=== PATIENT | female | born 1970 | race African-American/Black ===

== ENCOUNTER 2017-08-20 18:14 | Emergency (ER) | payer OTHER ==
[~2017-08-20] VITALS: Ht 154.9 cm; Wt 84.0 kg
[2017-08-20 21:08] LABS: BASOPHILS % 0.4 % (0.0-2.0); EOSINOPHILS % 0.4 % (0.0-5.0); HEMATOCRIT. 30.5 % (36.0-48.0); HEMOGLOBIN. 9.5 g/dL (12.0-16.0); LYMPHOCYTES % 24.4 % (20.0-50.0); MEAN CORPUSCULAR HEMOGLOBIN 21.2 pg (28.0-32.0); MEAN CORPUSCULAR VOLUME 68.1 fL (81.0-99.0); MEAN PLATELET VOLUME 8.8 fl (7.4-10.4); MONOCYTES % 6.4 % (2.0-8.0); NEUTROPHILS % 68.4 % (40.0-76.0); PLATELET 255 x1000/uL (130-400); RED BLOOD CELL COUNT 4.48 mill/uL (4.2-5.4); RED CELL DISTRIBUTION WIDTH 20.9 % (11.6-14.6)
[2017-08-20 21:14] LABS: CHLORIDE 105 mEq/L (98-107)
[2017-08-20 21:17] LABS: PARTIAL THROMBOPLASTIN TIME 26.5 sec (23.4-31.0); PROTHROMBIN TIME 10.7 sec (9.4-11.6)
[2017-08-20 21:31] LABS: PLATELET ESTIMATE NORMAL
[2017-08-21 00:14] LABS: HCG SCREEN NEGATIVE
[2017-08-21] MEDS ORDERED: IOHEXOL-350 100 ML BOTTLE ONE (02:25)
[2017-08-21 02:29] VITALS: BP 155/80
== END 2017-08-21 02:30 | disposition home or self-care (01) ==
LOC: ER 20:08
DX: J20.9 Acute bronchitis, unspecified (principal); E04.1 Nontoxic single thyroid nodule; R04.2 Hemoptysis; D64.9 Anemia, unspecified; F41.9 Anxiety disorder, unspecified; Z98.890 Other specified postprocedural states
CPT/HCPCS: 36415; 71045; 71275; 80053; 83605; 83690; 83880; 84484; 84703; 85025; 85610; 85730; 87040; 93005; 99285; Q9967

== ENCOUNTER 2018-11-25 13:36 | Emergency (ER) | payer OTHER ==
[~2018-11-25] VITALS: Ht 154.9 cm; Wt 84.0 kg
[2018-11-25] MEDS ORDERED: IBUPROFEN 600MG TABLET PO ONE (15:15)
[2018-11-25 16:29] VITALS: BP 150/71
== END 2018-11-25 16:32 | disposition home or self-care (01) ==
LOC: ER 14:02
DX: M25.561 Pain in right knee (principal); M25.562 Pain in left knee; M17.0 Bilateral primary osteoarthritis of knee; F41.9 Anxiety disorder, unspecified; Z98.890 Other specified postprocedural states
CPT/HCPCS: 71045; 73560; 93005; 99283

== ENCOUNTER 2024-08-08 17:41 | Emergency (ER) | payer OTHER ==
[~2024-08-08] VITALS: Ht 165.1 cm; Wt 83.0 kg
[2024-08-08 17:49] VITALS: TEMP 37.1; O2SAT 100
[2024-08-08] MEDS ORDERED: AMLO5TAB88 MT (19:01)
[2024-08-08 19:19] VITALS: BP 179/86; PULSE 79; RESP 16; O2SAT 100
== END 2024-08-08 19:20 | disposition home or self-care (01) ==
LOC: ER 17:41
DX: R21 Rash and other nonspecific skin eruption (principal); I10 Essential (primary) hypertension; F32.A Depression, unspecified; F41.9 Anxiety disorder, unspecified; Z98.890 Other specified postprocedural states
CPT/HCPCS: 99283; Z7610 ×2; A4606